=== PATIENT | female | born 1970 | race Hispanic/Latino ===

== ENCOUNTER → 2017-12-10 | Day surgery (SDC) | payer BC ==
[~2017-12-10] MED LIST: CIPRO500 MG PO; DEXAMETHASONE SOD PHOS INJ 4 MG/ML VIAL ONE; EPHEDRINE SULFATE INJ 50 MG/10 ML SYR ONE; FENTANYL CITRATE/PF 100MCG/2 ML INJ ONE; FLOMAX0.4 MG PO; IBUPROFEN400 MG PO; IOPAMIDOL 300MG/ML 50ML INFUS..BTL IV ONE; LEVOFLOXACIN 500MG/D5W 100ML 100 ML IV ONE; LIDOCAINE HCL 2% LOCAL INJ 5 ML SDV VIAL INJ ONE; MIDAZOLAM HCL 2 MG/2 ML VIAL ONE; ONDANSETRON HCL INJ 2 MG/ML VIAL ONE; PROPOFOL IV EMULSION 10 MG/ML 20 ML VIAL ONE; SEVOFLURANE INHAL SOLN 250 ML PEN BTL ONE; TYLENOL WITH C1 EACH PO
--- NOTE | 2017-12-10 14:33 | Operative Report ---
DATE OF PROCEDURE: December 10, 2017 PREOPERATIVE DIAGNOSIS: Right lower third ureteral calculus, 7 x 7 mm. POSTOPERATIVE DIAGNOSES 1. Right lower third ureteral calculus, 7 x 7 mm. 2. Multiple bladder calculi. OPERATIONS 1. Cystourethroscopy and retrograde pyelogram on the right. 2. Ureteropyeloscopy with laser lithotripsy, holmium for the ureteral calculus with complete pulverization and fragmentation and passage of most of the stone fragments. 3. Cystoscopy and insertion of right double-J ureteral stent, 6-Nepalese x 26 cm. 4. Vesicolitholapaxy for all bladder stones. TRIM LINE WORKER: Dr. Hoang. ANESTHETIC: General. INDICATIONS: Ms. Larios is a 47-year-old female who presented with acute onset of severe pain on the right side. CT scan showed a 7 x 7 mm right lower third ureteral calculus at the level of the junction of right lower and mid ureters. PROCEDURE IN DETAIL: This patient was placed on the table in the lithotomy position and was prepped and draped in a sterile manner after satisfactory anesthesia. A #23-Nepalese cystoscope was used and cystourethroscopy was performed and it was noted that the bladder has about 100 small stones in the bladder. Both ureteral orifices were seen and were within normal position and configuration with no efflux on the right side. Right retrograde pyelogram was then performed using #8 ball-tip ureteral catheter inserted through the right ureteral orifice and 5 mL of contrast material was injected retrograde, showed the calculus to be at the right lower and mid ureters. A 0.38 flexible-tip Glidewire was then passed through the working channel of the cystoscope through the right ureteral orifice all the way up to the renal pelvis. The cystoscope was removed. The rigid ureteropyeloscope was then passed through the urethra to the bladder through the right ureteral orifice and passed all the way up the right ureter passing the stone. Inspection above was negative. The ureteroscope was then retracted slightly and slowly just distal to the calculus. The holmium laser lithotripsy was then started starting at 1 joule and 12 Hz and using a 270-micron fiber. The fiber was passed through the working channel of the urethroscope to the level of the stone. Holmium laser lithotripsy was then started on the stone and the stone was completely pulverized into about 30 to 40 to 50 small pieces that were passing readily. The laser scope generator was shut down. The ureteroscope was removed. The cystoscope was passed over the guidewire through the bladder and a 6-Nepalese x 26 cm double-J ureteral stent was then passed over the guidewire through the working channel of the cystoscope through the right ureteral orifice and then under direct vision and fluoroscopic control was passed all the way up to the renal pelvis leaving the upper end of the stent in the renal pelvis and the lower end of the stent in the bladder. The guidewire was removed. The vesicolitholapaxy was done and all the stone fragments were recovered from the bladder. The cystoscope was removed. Patient tolerated the procedure well and was taken to the recovery room in satisfactory condition. Job#: [id number] SUSY
== END | disposition home or self-care (01) ==
LOC: OR 07:00
PROVIDERS: ATTEND Specialist
DX: N20.1 Calculus of ureter (principal); N21.0 Calculus in bladder; N13.30 Unspecified hydronephrosis; N39.0 Urinary tract infection, site not specified; E66.9 Obesity, unspecified; F17.210 Nicotine dependence, cigarettes, uncomplicated
CPT/HCPCS: 52318; 52356; 74420; 81025; 88300; C2617; J1956; J2250; J2405; Q9967; J1100; J2001